=== PATIENT | male | born 1965 | race African-American/Black ===

== ENCOUNTER 2020-03-25 20:22 | Emergency (ER) | payer MEDICAID ==
[~2020-03-25] VITALS: Ht 193 cm; Wt 106.0 kg
[2020-03-25] MEDS ORDERED: NAPR-683 PO (22:41)
--- NOTE | 2020-03-25 22:41 | PHYS DOC ---
Past Medical History Past Medical History: CAD, High Cholesterol, Hypertension (ESPERANZA MARTINEZ APRN) Past Surgical History: Other Additional Past Surgical Histo: Cardiac stents x 4 placed in 2014 (ESPERANZA MARTINEZ APRN) Smoking Status: Current Every Day Smoker Alcohol Use: Rarely (ESPERANZA MARTINEZ APRN) General Adult EDM: Chief Complaint: LOWER BACK PAIN OR INJURY HPI: HPI: Patient is a 54 year old male patient who presents with back pain. Patient reports he had had an MRI recently and has been diagnosed with a pinched nerve. States he had been given some pain medication some muscle relaxers and naproxen at that time. States he had been taking them however he has no more. States he had gone to urgent care today, and was told to go to the ER at [facility]. He states he had one third wait for 7 hours, and had left after waiting. States he came here because he was tired of waiting. EMS reports he picked up patient outside the front door of [facility] on patient requested to come to this facility at that time. Patient states he has not taken any medication since yesterday for his discomfort, other than he had received a shot of muscle relaxer at urgent care earlier. States that did not seem to help at all. Patient does state he has an appointment with a primary care provider scheduled in the next couple weeks (ESPERANZA MARTINEZ APRN) Review of Systems: Review of Systems: Constitutional: Denies fever or chills. [] Respiratory: Denies cough or shortness of breath. [] Cardiovascular: Denies chest pain or edema. [] : Denies dysuria. [] Musculoskeletal: Does report some recurring back pain. [] Integument: Denies rash. [] Neurologic: Denies headache, focal weakness or sensory changes. [] (ESPERANZA MRATINEZ APRN) Heart Score: Risk Factors: Risk Factors: DM, Current or recent (<one month) smoker, HTN, HLP, family history of CAD, obesity. Risk Scores: Score 0 - 3: 2.5% MACE over next 6 weeks - Discharge Home Score 4 - 6: 20.3% MACE over next 6 weeks - Admit for Clinical Observation Score 7 - 10: 72.7% MACE over next 6 weeks - Early Invasive Strategies (ESPERANZA MARTINEZ APRN) Current Medications: Current Medications Medications (Trade) Dose Ordered Sig/[place] Start Time Stop Time Status Last Admin Dose Admin Ketorolac Tromethamine (Toradol 30mg Vial) 30 mg 1X ONCE 03/25/20 22:45 03/25/20 22:46 UNV (ESPERANZA MARTINEZ APRN) Physical Exam: PE: Constitutional: Well developed, well nourished, no acute distress, non-toxic appearance. Patient ambulatory in hallway intermittently [] Neck: Normal range of motion, no tenderness, supple, no stridor. [] Abdomen: Bowel sounds normal, soft, no tenderness, no masses, no pulsatile masses. [] Skin: Warm, dry, no erythema, no rash. [] Back: Reports discomfort to mid back] Extremities: No tenderness, no cyanosis, no clubbing, ROM intact, no edema. [] Neurologic: Alert and oriented X 3, normal motor function, normal sensory function, no focal deficits noted. [] Psychologic: Affect normal, judgement normal, mood normal. [] (ESPERANZA MARTINEZ APRN) Current Patient Data: Vital Signs: Vital Signs Date Time Temp Pulse Resp B/P (MAP) Pulse Ox O2 Delivery O2 Flow Rate FiO2 03/25/20 20:46 97.8 54 18 138/78 (98) 97 Room Air 97.8 (ESPERANZA MARTINEZ APRN) EKG: EKG: [] (ESPERANZA MARTINEZ APRN) Radiology/Procedures: Radiology/Procedures: [] (ESPERANZA MARTINEZ APRN) Course & Med Decision Making: Course & Med Decision Making Pertinent Labs and Imaging studies reviewed. (See chart for details) [] Given patient recent MRI, with additional visits, believe safe for discharge without acute changes today. Patient does report had episode earlier today prior to going to urgent care where he had urinated himself, however he has not reported any episodes since this time, which was early this morning. States he has not had any loss of bowel, believe safe for discharge. Will provide additional prescription for anti-inflammatory medications as well as Toradol dosed at this time. Patient is remove the splint at this time. Patient does have follow-up scheduled with a new primary care in approximately 10 days (ESPERANZA MARTINEZ APRN) Dragon Disclaimer: Dragon Disclaimer: This electronic medical record was generated, in whole or in part, using a voice recognition dictation system. (ESPERANZA MARTINEZ APRN) Departure Departure Impression: Primary Impression: Chronic back pain Qualified Codes: M54.5 - Low back pain; G89.29 - Other chronic pain Disposition: HOME, SELF-CARE Condition: STABLE Referrals: UNKNOWN PCP NAME (PCP) Patient Instructions: Back Pain, Adult, Pinched Nerve Additional Instructions: As we discussed, take the naproxen for your discomfort. You may consider taking the cyclobenzaprine that was also prescribed earlier if you still have some. Make sure you keep your follow-up appointments in just over a week with your new primary care provider. Scripts Naproxen (NAPROSYN) 500 Mg Tablet 1 TAB PO BID for pain for 30 Days, #60 TAB 0 Refills Prov: ESPERANZA MARTINEZ APRN 03/25/20 Justicifation of Admission Dx: Justifications for Admission: Justification of Admission Dx: N/A (ESPERANZA MARTINEZ APRN) Attending Signature Attending Signature I have reviewed the PA/BALLET SOLOIST's note and plan of care. I was available for consultation as needed during the patient's visit in the emergency department. I agree with the clinical impression, plan, and disposition. (SHELLI NASCIMENTO DO) ESPERANZA MARTINEZ APRN Mar 25, 2020 22:41 SHELLI NASCIMENTO DO Mar 26, 2020 02:07
[2020-03-25] MEDS ORDERED: KETOROLAC 30 MG/ML VIAL. IM ONE (22:45)
[2020-03-25 23:06] VITALS: BP 163/70
== END 2020-03-25 23:07 | disposition home or self-care (01) ==
LOC: ER 20:22
DX: M54.5 Low back pain (principal); G89.29 Other chronic pain; I10 Essential (primary) hypertension; E78.00 Pure hypercholesterolemia, unspecified; I25.10 Atherosclerotic heart disease of native coronary artery without angina pectoris; F17.200 Nicotine dependence, unspecified, uncomplicated; Z95.5 Presence of coronary angioplasty implant and graft
CPT/HCPCS: 96372; 99283; J1885